=== PATIENT | female | born 1990 | race Two or more races ===

== ENCOUNTER 2022-07-24 10:47 | Outpatient (CLI) | payer OTHER ==
[~2022-07-24 10:47] MED LIST: LAMICTAL200 MG
== END 2022-07-24 11:55 | disposition home or self-care (01) ==
LOC: PRENATAL 10:47
PROVIDERS: ATTEND Obstetrics & Gynecology Maternal & Fetal Medicine
DX: O26.849 Uterine size-date discrepancy, unspecified trimester (principal); O36.8199 Decreased fetal movements, unspecified trimester, other fetus; O28.1 Abnormal biochemical finding on antenatal screening of mother; Z3A.32 32 weeks gestation of pregnancy

== ENCOUNTER 2022-09-04 08:17 | Outpatient (CLI) | payer OTHER | END 2022-09-04 09:20 | disposition home or self-care (01) | LOC: PRENATAL 08:17 | PROVIDERS: ATTEND Obstetrics & Gynecology Maternal & Fetal Medicine | DX: O35.9XX0 Maternal care for (suspected) fetal abnormality and damage, unspecified, not applicable or unspecified (principal); O35.3XX0 Maternal care for (suspected) damage to fetus from viral disease in mother, not applicable or unspecified; O99.891 Other specified diseases and conditions complicating pregnancy; Z14.8 Genetic carrier of other disease; Z3A.20 20 weeks gestation of pregnancy ==

== ENCOUNTER 2022-11-21 10:18 | Outpatient (CLI) | payer OTHER | END 2022-11-21 11:47 | disposition home or self-care (01) | LOC: PRENATAL 10:18 | PROVIDERS: ATTEND Obstetrics & Gynecology Maternal & Fetal Medicine | DX: O26.849 Uterine size-date discrepancy, unspecified trimester (principal); O43.90 Unspecified placental disorder, unspecified trimester; Z3A.32 32 weeks gestation of pregnancy ==

== ENCOUNTER 2023-01-02 08:45 | Inpatient (IN) | payer OTHER ==
[~2023-01-02] VITALS: Ht 152.4 cm; Wt 3.2 kg
[2023-01-09] MEDS ORDERED: PRENATAL + DHA1 EAC1 PO (12:17)
== END 2023-01-11 17:18 | disposition home or self-care (01) | DRG 788 ==
LOC: OB/GYN 01-09 08:45 → O/R 01-09 10:50 → OB/GYN 01-09 12:00
PROVIDERS: ADMIT Obstetrics & Gynecology; ATTEND Obstetrics & Gynecology
PROC: 4A1HXCZ Monitoring of Products of Conception, Cardiac Rate, External Approach (ICD-10-PCS; 2023-01-09)
PROC: 10D00Z1 Extraction of Products of Conception, Low, Open Approach (ICD-10-PCS; principal; 2023-01-09 12:00)
DX: O32.1XX0 Maternal care for breech presentation, not applicable or unspecified (principal); Z3A.39 39 weeks gestation of pregnancy; Z37.0 Single live birth; Z20.822 Contact with and (suspected) exposure to COVID-19

== ENCOUNTER 2023-06-12 12:16 | Day surgery (SDC) | payer OTHER ==
[~2023-06-12 12:16] MED LIST changes: +PRENATAL + DHA1 EAC1 PO
== END 2023-06-12 22:15 | disposition home or self-care (01) ==
LOC: CIR.AMB 12:16
PROVIDERS: ATTEND Obstetrics & Gynecology
DX: N87.1 Moderate cervical dysplasia (principal); Z20.822 Contact with and (suspected) exposure to COVID-19